=== PATIENT | female | born 1955 | race Hispanic/Latino ===

== ENCOUNTER 2018-08-26 21:23 | Emergency (ER) | payer OTHER ==
[2018-08-26] MEDS ORDERED: ACETAMINOPHEN 500 MG TAB ONE ×2 (23:00→23:01)
[2018-08-26] MEDS ORDERED: IBUPROFEN 400 MG TAB ONE (23:00)
[2018-08-26] MEDS ORDERED: IBUPROFEN 200 MG TAB PO ONE (23:00)
--- NOTE | 2018-08-26 23:52 | EDPHYS ---
Physician Documentation [facility] Name: Kaylyn Moncada Age: 62 yrs Sex: Female : 1955 Arrival Date: 08/26/2018 Time: 21:25 Bed 28 Private MD: ED Physician Abebe Anand HPI: 08/26 23:20 This 62 yrs old Female presents to ER via Ambulatory with complaints of Wrist wa Pain. 23:20 The patient or guardian reports deformity, injury. The complaints affect the right wa wrist diffusely. Context: The problem was sustained at home, resulted from a fall. Onset: The symptoms/episode began/occurred just prior to arrival, today. Modifying factors: The symptoms are alleviated by nothing, the symptoms are aggravated by movement. Associated signs and symptoms: The patient has no apparent associated signs or symptoms. The patient has not experienced similar symptoms in the past. The patient has not recently seen a physician. fell. tripped by dog. denies LOC. Historical: - Allergies: 21:53 No Known Allergies; bb - Home Meds: 21:53 Lantus 100 unit/mL Sub-Q soln [Active]; metformin 1,000 mg Oral TG24 1 tab 2 times per bb day [Active]; glipizide 10 mg Oral tab 1 tab 2 times per day [Active]; ibuprofen 800 mg Oral tab 1 tab 3 times per day [Active]; metoprolol succinate 50 mg oral Tb24 1 tab once daily [Active]; Levemir 100 unit/mL subcutaneous soln [Active]; losartan potassium daily [Active]; hydrochlorothiazide 25 mg Oral tab 1 tab once daily [Active]; cyclobenzaprine 10 mg Oral tab 1 tab 2 times per day [Active]; simvastatin 40 mg Oral tab 1 tab once daily [Active]; prednisone 10 mg Oral tab 1 tab 2 times per day [Active]; - PMHx: 21:53 Diabetes - IDDM; Hypertension; allergies; bb - PSHx: 21:53 None; bb - Immunization history:: Adult Immunizations up to date. - Social history:: Smoking status: Patient uses tobacco products, denies chronic smoking, but will smoke occasionally, Patient/guardian denies using alcohol. - Ebola Screening: : No symptoms or risks identified at this time. - Family history:: not pertinent. - Hospitalizations: : No recent hospitalization is reported. ROS: 23:23 Constitutional: Negative for fever, chills, and weight loss, Eyes: Negative for injury, wa pain, redness, and discharge, ENT: Negative for injury, pain, and discharge, Neck: Negative for injury, pain, and swelling, Cardiovascular: Negative for chest pain, palpitations, and edema, Respiratory: Negative for shortness of breath, cough, wheezing, and pleuritic chest pain, Abdomen/GI: Negative for abdominal pain, nausea, vomiting, diarrhea, and constipation, : Negative for injury, bleeding, discharge, and swelling, Skin: Negative for injury, rash, and discoloration, Neuro: Negative for headache, weakness, numbness, tingling, and seizure. 23:23 Back: Positive for pain with movement, of the lumbar area, left low back and right low back. 23:23 MS/extremity: Positive for injury or acute deformity, pain, swelling, tenderness, of the right wrist. 23:23 All other systems are negative. Exam: 23:31 Hand exam: Exam is positive for injury, pain, swelling, tenderness, R wrist. wa 23:31 Skin: Appearance: Color: normal in color. 23:31 Constitutional: This is a well developed, well nourished patient who is awake, alert, and in no acute distress. Head/Face: Normocephalic, atraumatic. Eyes: Pupils equal round and reactive to light, extra-ocular motions intact. Lids and lashes normal. Conjunctiva and sclera are non-icteric and not injected. Cornea within normal limits. Periorbital areas with no swelling, redness, or edema. ENT: Nares patent. No nasal discharge, no septal abnormalities noted. Tympanic membranes are normal and external auditory canals are clear. Oropharynx with no redness, swelling, or masses, exudates, or evidence of obstruction, uvula midline. Mucous membranes moist. Neck: Trachea midline, no thyromegaly or masses palpated, and no cervical lymphadenopathy. Supple, full range of motion without nuchal rigidity, or vertebral point tenderness. No Meningismus. Chest/axilla: Normal chest wall appearance and motion. Nontender with no deformity. No lesions are appreciated. Cardiovascular: Regular rate and rhythm with a normal S1 and S2. No gallops, murmurs, or rubs. Normal PMI, no JVD. No pulse deficits. Respiratory: Lungs have equal breath sounds bilaterally, clear to auscultation and percussion. No rales, rhonchi or wheezes noted. No increased work of breathing, no retractions or nasal flaring. Abdomen/GI: Soft, non-tender, with normal bowel sounds. No distension or tympany. No guarding or rebound. No evidence of tenderness throughout. Skin: Warm, dry with normal turgor. Normal color with no rashes, no lesions, and no evidence of cellulitis. Neuro: Awake and alert, GCS 15, oriented to person, place, time, and situation. Cranial nerves II-XII grossly intact. Motor strength 5/5 in all extremities. Sensory grossly intact. Cerebellar exam normal. Normal gait. Psych: Awake, alert, with orientation to person, place and time. Behavior, mood, and affect are within normal limits. 23:31 Back: pain, that is mild, of the lumbar area, left low back and right low back. 23:31 Musculoskeletal/extremity: Extremities: grossly normal except: noted in the right wrist: pain, swelling, tenderness. Vital Signs: 21:53 BP 144 / 60; Pulse 57; Resp 16 S; Temp 98.4(O); Pulse Ox 100% on R/A; Weight 56.7 kg bb (R); Height 5 ft. 3 in. (160.02 cm) (R); Pain 10/10; 23:28 BP 137 / 81; Pulse 63; Resp 18; Pulse Ox 98% on R/A; rv 21:53 Body Mass Index 22.14 (56.70 kg, 160.02 cm) Procedures: 23:49 Splinting: Splint applied to right wrist using Orthoglass splint, applied by tech. ok nurse. Examined by tx, post splint application: neurovascular intact, 2+ distal pulses palpable, brisk capillary refill noted, Patient tolerated well, orthoglass sugartong splint placed R wrist. tolerated well. [facility]: 22:06 Patient medically screened. ok 23:33 Differential diagnosis: dislocation, closed fracture, contusion. Data reviewed: vital ok signs, nurses notes. 23:48 Test interpretation: by ED physician or midlevel provider: R wrist x-ray: acute ok comminuted fx of the distal radius. lumbar x-ray: no acute fx. Response to treatment: the patient's symptoms have markedly improved after treatment. 08/26 21:56 Order name: XRAY Wrist RIGHT 3 view 08/26 22:32 Order name: Lumbar Spine (3 Views) XRAY wa 08/26 22:39 Order name: Splint - Sugar Tong - Forearm: R UE to involve wrist; Complete Time: 23:27 Administered Medications: 23:23 Drug: Tylenol 1000 mg Route: PO; rv 23:55 Follow up: Response: No adverse reaction rv 23:24 Drug: Motrin 600 mg Route: PO; rv 23:55 Follow up: Response: No adverse reaction rv Disposition: 08/26/18 23:51 Discharged to Home. Impression: Fracture at wrist and hand level. - Condition is Stable. - Discharge Instructions: Wrist Fracture Treated With Immobilization, [id number]. - Prescriptions for Tylenol- Codeine #3 300-30 mg Oral Tablet - take 1 tablet by ORAL route every 6 hours As needed; 25 tablet. - Medication Reconciliation Form, Thank You Letter, Antibiotic Education, Prescription Opioid Use form. - Follow up: Pablito Mayfield MD; When: 2 - 3 days; Reason: Continuance of care. - Problem is new. - Symptoms have improved. - Notes: wear splint and sling. follow up with the bone doctor next business day by calling for appointment. Signatures: Dispatcher [employer] Trinity Sanchez RN RN Abebe Anand MD MD wa Vicente, Ronaldo, RN RN rv Corrections: (The following items were deleted from the chart) 08/27 00:00 08/26 23:51 08/26/2018 23:51 Discharged to Home. Impression: Fracture at wrist and hand rv level. Condition is Stable. Forms are Medication Reconciliation Form, Thank You Letter, Antibiotic Education, Prescription Opioid Use. Follow up: Pablito Mayfield; When: 2 - 3 days; Reason: Continuance of care. Problem is new. Symptoms have improved. elizabeth
--- NOTE | 2018-08-26 23:52 | ER ---
Nurse's Notes [facility] Name: Kaylyn Moncada Age: 62 yrs Sex: Female : 1955 Arrival Date: 08/26/2018 Time: 21:25 Bed 28 Private MD: Diagnosis: Fracture at wrist and hand level Presentation: 08/26 21:44 Presenting complaint: Patient states: she was walking the dog and when she tried to bb open the door she got tangled up in the leash and fell backwards injuring her right wrist and she thinks she has swelling to the right side of her face. Transition of care: patient was not received from another setting of care. Onset of symptoms was August 26, 2018. Risk Assessment: Do you want to hurt yourself or someone else? Patient reports no desire to harm self or others. Initial Sepsis Screen: Does the patient meet any 2 criteria? No. Patient's initial sepsis screen is negative. Does the patient have a suspected source of infection? No. Patient's initial sepsis screen is negative. Care prior to arrival: None. 21:44 Method Of Arrival: Ambulatory bb 21:44 Acuity: MARVIN 4 bb Historical: - Allergies: 21:53 No Known Allergies; bb - Home Meds: 21:53 Lantus 100 unit/mL Sub-Q soln [Active]; metformin 1,000 mg Oral TG24 1 tab 2 times per bb day [Active]; glipizide 10 mg Oral tab 1 tab 2 times per day [Active]; ibuprofen 800 mg Oral tab 1 tab 3 times per day [Active]; metoprolol succinate 50 mg oral Tb24 1 tab once daily [Active]; Levemir 100 unit/mL subcutaneous soln [Active]; losartan potassium daily [Active]; hydrochlorothiazide 25 mg Oral tab 1 tab once daily [Active]; cyclobenzaprine 10 mg Oral tab 1 tab 2 times per day [Active]; simvastatin 40 mg Oral tab 1 tab once daily [Active]; prednisone 10 mg Oral tab 1 tab 2 times per day [Active]; - PMHx: 21:53 Diabetes - IDDM; Hypertension; allergies; bb - PSHx: 21:53 None; bb - Immunization history:: Adult Immunizations up to date. - Social history:: Smoking status: Patient uses tobacco products, denies chronic smoking, but will smoke occasionally, Patient/guardian denies using alcohol. - Ebola Screening: : No symptoms or risks identified at this time. - Family history:: not pertinent. - Hospitalizations: : No recent hospitalization is reported. Screenin:30 Abuse screen: Denies threats or abuse. Denies injuries from another. Nutritional rv screening: No deficits noted. Tuberculosis screening: No symptoms or risk factors identified. Fall Risk None identified. Assessment: 22:00 General: Appears in no apparent distress. uncomfortable, Behavior is calm, cooperative. rv 22:00 Pain: Complains of pain in right wrist. Neuro: Level of Consciousness is awake, alert, rv obeys commands, Oriented to person, place, time, situation. Cardiovascular: Capillary refill < 3 seconds. Respiratory: Airway is patent. GI: No signs and/or symptoms were reported involving the gastrointestinal system. : No signs and/or symptoms were reported regarding the genitourinary system. EENT: No signs and/or symptoms were reported regarding the EENT system. Derm: Skin is intact. Musculoskeletal: Swelling present in right wrist. 23:33 Reassessment: Patient appears in no apparent distress at this time. Patient and/or rv family updated on plan of care and expected duration. Pain level reassessed. Patient is alert, oriented x 3, equal unlabored respirations, skin warm/dry/pink. Vital Signs: 21:53 BP 144 / 60; Pulse 57; Resp 16 S; Temp 98.4(O); Pulse Ox 100% on R/A; Weight 56.7 kg bb (R); Height 5 ft. 3 in. (160.02 cm) (R); Pain 10/10; 23:28 BP 137 / 81; Pulse 63; Resp 18; Pulse Ox 98% on R/A; rv 21:53 Body Mass Index 22.14 (56.70 kg, 160.02 cm) bb ED Course: 21:25 Patient arrived in ED. ag3 21:46 Triage completed. bb 21:53 Arm band placed on Patient placed in an exam room, on a stretcher, on pulse oximetry. bb Affected limb iced. Family accompanied patient. 21:56 X-ray ordered. bb 22:06 Abebe Anand MD is Attending Physician. wa 22:19 X-ray completed. Portable x-ray completed in exam room. Patient tolerated procedure ls3 well. 22:20 XRAY Wrist RIGHT 3 view In Process Unspecified. EDMS 22:55 Lumbar Spine (3 Views) XRAY In Process Unspecified. EDMS 23:30 Patient has correct armband on for positive identification. Bed in low position. Call rv light in reach. Side rails up X 1. Adult w/ patient. Pulse ox on. NIBP on. 23:44 Orthoglass splint: Sugar tong splint applied on right arm. Sling applied to right arm. ds4 23:51 Pablito Mayfield MD is Referral Physician. wa 23:59 No provider procedures requiring assistance completed. Patient did not have IV access rv during this emergency room visit. Administered Medications: 23:23 Drug: Tylenol 1000 mg Route: PO; rv 23:55 Follow up: Response: No adverse reaction rv 23:24 Drug: Motrin 600 mg Route: PO; rv 23:55 Follow up: Response: No adverse reaction rv Outcome: 23:51 Discharge ordered by . hi 08/27 00:00 Discharged to home ambulatory. rv Condition: good Discharge instructions given to patient, family, Instructed on discharge instructions, follow up and referral plans. medication usage, Demonstrated understanding of instructions, follow-up care, medications, splint care, Prescriptions given X 1. 00:00 Patient left the ED. rv Signatures: Dispatcher [employer] EDMS Trinity Ward, Zbigniew Jorgensen RN ds4 Abebe Anand MD MD wa Vicente, Ronaldo, RN RN rv Siler, Lynzie ls3 Olivia Hope ag3
--- NOTE | 2018-08-27 09:42 | RAD REPORT ---
EXAM DESCRIPTION: RAD - Wrist Right 3 View - 08/26/2018 10:20 pm CLINICAL HISTORY: Right wrist pain status post injury FINDINGS: A mildly displaced intra-articular fracture involves the distal right radius. No dislocation is seen. Avulsion of the ulnar styloid process probably is chronic
--- NOTE | 2018-08-27 09:56 | RAD REPORT ---
EXAM DESCRIPTION: RAD - Lumbar Spine 3 Views - 08/26/2018 11:00 pm CLINICAL HISTORY: Back pain FINDINGS: The alignment of the lumbar spine is satisfactory. No fracture or dislocation is seen. The bones are osteoporotic
== END 2018-08-27 | disposition home or self-care (01) ==
LOC: ER 21:23
PROC: 2W3CX1Z Immobilization of Right Lower Arm using Splint (ICD-10-PCS; principal; 2018-08-26)
DX: S62.101A Fracture of unspecified carpal bone, right wrist, initial encounter for closed fracture (principal); M54.5 Low back pain; M81.0 Age-related osteoporosis without current pathological fracture; W01.0XXA Fall on same level from slipping, tripping and stumbling without subsequent striking against object, initial encounter; Y92.009 Unspecified place in unspecified non-institutional (private) residence as the place of occurrence of the external cause; E11.9 Type 2 diabetes mellitus without complications; I10 Essential (primary) hypertension; Z79.4 Long term (current) use of insulin; Z79.899 Other long term (current) drug therapy; F17.200 Nicotine dependence, unspecified, uncomplicated
CPT/HCPCS: 72100; 99284

== ENCOUNTER → 2024-01-10 | Emergency (ER) | payer OTHER ==
[~2024-01-10] MED LIST: FAMOTIDINE 20 MG/2 ML VIAL IV ONE; NA CHLORIDE 0.9% 1,000 ML ONE; ONDANSETRON 4 MG/2 ML VIAL ONE
[2024-01-10 14:35] LABS: Absolute Eosinophils 0.1 K/uL (0-0.5); Absolute Lymphocytes (CBC) 1.7 K/uL (0.7-4.9); Absolute Monocytes 0.4 K/uL (0.1-1.3); Absolute Neutrophil 6.4 K/uL (1.8-8.0); Basophils % 0.4 % (0-1.3); Eosinophils % 1.2 % (0-4.4); Hematocrit 40.8 % (36.0-45.0); Hemoglobin 13.7 g/dL (12.0-15.0); Lymphocytes % 19.4 % (15.3-44.8); MCH 31.4 pg (27.0-35.0); MCHC 33.6 g/dL (32.0-36.0); MCV 93.4 fL (80-100); MPV 8.5 fL (7.6-11.3); Monocytes % 5.2 % (3.3-12.3); Neutrophils % 73.8 % (41.7-73.7); Platelets 235 thou/uL (152-406); RBC Red Blood Cell Count 4.37 M/uL (3.86-4.86); Red Cell Distribution Width 13.5 % (12.1-15.2)
[2024-01-10 14:54] LABS: Albumin 3.8 g/dL (3.4-5.0); Albumin/Globulin Ratio 1.1 (1.1-1.8); Anion Gap 9.5 mEq/L (5.0-15.0); Bilirubin Total 1.1 mg/dL (0.2-1.0); Globulin 3.4 g/dL (2.3-3.5); Potassium 3.5 mEq/L (3.5-5.1); Protein, Total 7.2 g/dL (6.4-8.2)
--- NOTE | 2024-01-10 15:25 | RAD REPORT ---
EXAM DESCRIPTION: CT - Abdomen Pelvis W Contrast - 01/10/2024 3:08 pm CLINICAL HISTORY: Abdominal pain COMPARISON: none. TECHNIQUE: Computed axial tomography of the abdomen pelvis was obtained. 100 cc Isovue-300 was admin istered intravenously. Oral contrast was not requested which limits evaluation of bowel and appendix All CT scans are performed using dose optimization technique as appropriate and may include automated exposure control or mA/KV adjustment according to patient size. FINDINGS: The liver, spleen, pancreas, right adrenal and kidneys appear unremarkable. 2.2 centimeter left adrenal mass. Hounsfield units 39 There is no evidence of diverticulitis. Normal appendix 1.8 centimeter partially calcified structure abuts the left aspect of the uterus which may represent subserosal fibroid or calcifications within left ovary 2 centimeter area of increased density within the uterus IMPRESSION: 2.2 centimeter left adrenal mass. It is recommended that the patient have a nonemergent MRI to determine if this represents an adenoma A 2 centimeter area of increased density within the uterus. This may represent a fibroid or endometri al lesion. Nonemergent endovaginal pelvic sonogram recommended
--- NOTE | 2024-01-10 15:44 | ER ---
Nurse's Notes [facility] Name: Kaylyn Moncada Age: 68 yrs Sex: Female : 1955 Arrival Date: 01/10/2024 Time: 14:04 Bed 14 Private MD: Diagnosis: Nausea with vomiting, unspecified;Diarrhea, unspecified;adrenal mass Presentation: 01/09 14:18 Chief complaint: Patient states: "Today, I started having N/V/D. My stomach feels off mb9 and I can't keep food or liquids down.". Coronavirus screen: Vaccine status: Patient reports receiving the 2nd dose of the covid vaccine. Ebola Screen: No symptoms or risks identified at this time. Initial Sepsis Screen: Does the patient meet any 2 criteria? No. Patient's initial sepsis screen is negative. Does the patient have a suspected source of infection? No. Patient's initial sepsis screen is negative. Risk Assessment: Do you want to hurt yourself or someone else? Patient reports no desire to harm self or others. Onset of symptoms was January 10, 2024. 14:18 Acuity: MARVIN 3 mb9 14:18 Method Of Arrival: Ambulatory mb9 Triage Assessment: 14:19 General: Appears in no apparent distress. Behavior is calm, cooperative. Pain: Denies mb9 pain. GI: Reports diarrhea, nausea, vomiting. Historical: - Allergies: 14:17 No Known Allergies; mb9 - PMHx: 14:17 allergies; Diabetes - IDDM; Hypertension; mb9 - PSHx: 14:17 None; mb9 - Immunization history:: Adult Immunizations up to date. - Social history:: Smoking status: Patient denies any tobacco usage or history of. Screenin:32 [facility] ED Fall Risk Assessment (Adult) History of falling in the last 3 months, me1 including since admission No falls in past 3 months (0 pts) Confusion or Disorientation No (0 pts) Intoxicated or Sedated No (0 pts) Impaired Gait No (0 pts) Mobility Assist Device Used No (0 pt) Altered Elimination No (0 pt) Score/Fall Risk Level 0 - 2 = Low Risk Maintained a safe environment, Provided non-skid footwear, Hourly rounding (assess needs \\T\\ fall precautionary measures) done. Abuse screen: Denies threats or abuse. Nutritional screening: No deficits noted. Tuberculosis screening: No symptoms or risk factors identified. Assessment: 14:31 General: Appears uncomfortable, well groomed, well developed, well nourished, Behavior me1 is calm, cooperative, appropriate for age, Reports n/v/d that started today. Can't keep food or liquids down. Pain: Complains of pain in abdomen Pain does not radiate. Pain currently is 3 out of 10 on a pain scale. Quality of pain is described as crampy, Pain began 4 hours ago. Is continuous. Neuro: Level of Consciousness is awake, alert, obeys commands, Oriented to person, place, time, situation, Appropriate for age. Cardiovascular: Patient's skin is warm and dry. Respiratory: Respiratory effort is even, unlabored, Respiratory pattern is regular, symmetrical. GI: Abdomen is non-distended, Reports diarrhea, nausea, vomiting. : No deficits noted. Derm: Skin is intact, is healthy with good turgor, Skin is pink, warm \\T\\ dry. Vital Signs: 14:15 BP 135 / 69; Pulse 58; Resp 16; Pulse Ox 100% on R/A; me1 14:18 BP 104 / 71; Pulse 65; Resp 16; Temp 98.5; Pulse Ox 100% on R/A; Weight 52.16 kg; mb9 Height 5 ft. 1 in. ; 15:00 BP 170 / 70; Pulse 51; Resp 14; Pulse Ox 98% on R/A; me1 16:04 BP 137 / 65; Pulse 56; Resp 16; Temp 98.3(O); Pulse Ox 98% on R/A; me1 14:18 Body Mass Index 21.73 (52.16 kg, 154.94 cm) 9 ED Course: 14:06 Patient arrived in ED. im 14:09 Jenn Peguero, REYNA is Primary Nurse. me1 14:11 Faye Martínez FNP-C is PHCP. kb 14:11 Jack Vieyra DO is Attending Physician. kb 14:17 Arm band placed on. mb9 14:19 Triage completed. mb9 14:23 Client placed on continuous cardiac and pulse oximetry monitoring. NIBP monitoring me1 applied. Pulse ox on. NIBP on. 14:23 Initial lab(s) drawn, by me, sent to lab. Inserted saline lock: 22 gauge in right me1 antecubital area, using aseptic technique. 14:23 CBC with Diff Sent. me1 14:23 CMP Sent. me1 14:23 Lipase Sent. me1 14:32 Patient has correct armband on for positive identification. Bed in low position. Call me1 light in reach. Side rails up X 1. Provided Education on: POC. Verbalized understanding. . 14:32 No provider procedures requiring assistance completed. me1 15:10 CT Abd/Pelvis - IV Contrast Only In Process Unspecified. EDMS 16:19 IV discontinued, intact, bleeding controlled, No redness/swelling at site. Pressure me1 dressing applied. Administered Medications: 14:30 Drug: NS 0.9% IV 1000 ml IV at 1 bolus Per protocol; 1000 mL bolus Route: IV; Rate: 1 me1 bolus; Site: right antecubital; 16:03 Follow up: Response: No adverse reaction; IV Status: Completed infusion; IV Intake: me1 1000ml 14:30 Drug: Famotidine IVP 20 mg IVP once; dilute with 10 mL 0.9% NaCl; give over 2 minutes me1 Route: IVP; Site: right antecubital; 14:35 Follow up: Response: No adverse reaction me1 14:30 Drug: Ondansetron IVP 4 mg IVP once; over 2 minutes Route: IVP; Site: right antecubital;me1 14:34 Follow up: Response: No adverse reaction; Nausea is decreased me1 Medication: 16:08 VIS not applicable for this client. me1 Intake: 16:03 IV: 1000ml; Total: 1000ml. me1 Outcome: 15:43 Discharge ordered by . laila 16:19 Discharged to home ambulatory, me1 16:19 Condition: stable 16:19 Discharge instructions given to patient, Instructed on discharge instructions, follow up and referral plans. medication usage, Demonstrated understanding of instructions, follow-up care, medications, Prescriptions given X 1, 16:20 Patient left the ED. me1 Signatures: Dispatcher [employer] EDFaye De Oliveira, [employer]AT[employer] WORKEROmarC [employer]AT[employer] WORKER-Jena Cespedes RN RN mb9 Jocelyn Delvalle Michelle RN RN me1
--- NOTE | 2024-01-10 15:44 | EDPHYS ---
Physician Documentation [facility] Name: Kaylyn Moncada Age: 68 yrs Sex: Female : 1955 Arrival Date: 01/10/2024 Time: 14:04 Bed 14 Private MD: ED Physician Jack Vieyra HPI: 01/09 14:22 This 68 yrs old Female presents to ER via Ambulatory with complaints of kb Vomiting, Abdominal Pain. 14:22 Pt is a 68 year old female who presents for n/v/d that started this morning. Denies kb fever or abd pain. Daughter states pt had been complaining of abd pain prior to arrival. . Historical: - Allergies: 14:17 No Known Allergies; mb9 - PMHx: 14:17 allergies; Diabetes - IDDM; Hypertension; mb9 - PSHx: 14:17 None; mb9 - Immunization history:: Adult Immunizations up to date. - Social history:: Smoking status: Patient denies any tobacco usage or history of. ROS: 14:21 Constitutional: As per HPI kb Exam: 14:21 Constitutional: This is a well developed, well nourished patient who is awake, alert, kb and in no acute distress. Head/Face: Normocephalic, atraumatic. ENT: Moist Mucous membranes Cardiovascular: Regular rate Respiratory: Respirations even and unlabored. No increased work of breathing. Talking in full sentences Abdomen/GI: Soft, non-tender. No distention Skin: Warm, dry with normal turgor. Normal color. MS/ Extremity: Pulses equal, no cyanosis. Neurovascular intact. Full, normal range of motion. Neuro: Awake and alert, GCS 15, oriented to person, place, time, and situation. Moves all extremities. Normal gait. Vital Signs: 14:15 BP 135 / 69; Pulse 58; Resp 16; Pulse Ox 100% on R/A; me1 14:18 BP 104 / 71; Pulse 65; Resp 16; Temp 98.5; Pulse Ox 100% on R/A; Weight 52.16 kg; mb9 Height 5 ft. 1 in. ; 15:00 BP 170 / 70; Pulse 51; Resp 14; Pulse Ox 98% on R/A; me1 16:04 BP 137 / 65; Pulse 56; Resp 16; Temp 98.3(O); Pulse Ox 98% on R/A; me1 14:18 Body Mass Index 21.73 (52.16 kg, 154.94 cm) mb9 MDM: 14:11 Patient medically screened. kb 14:23 Data reviewed: vital signs, nurses notes. kb 15:42 Differential diagnosis: Nonspecific abd pain, gastritis, diverticulitis, viral kb gastroenteritis. Historians other than the Patient: Daughter/Son: daughter. Counseling: I had a detailed discussion with the patient and/or guardian regarding the historical points, exam findings, and any diagnostic results supporting the discharge/admit diagnosis, lab results, radiology results, the need for outpatient follow up, a family practitioner, to return to the emergency department if symptoms worsen or persist or if there are any questions or concerns that arise at home. ED course: Pt educated on all diagnostic results and printed copy given. Educated to follow up with PCP for the adrenal mass and outpatient MRI. 01/09 14:13 Order name: CBC with Diff; Complete Time: 14:41 kb 01/09 14:13 Order name: CMP; Complete Time: 15:01 kb 01/09 14:13 Order name: Lipase; Complete Time: 15:01 kb 01/09 14:13 Order name: CT Abd/Pelvis - IV Contrast Only; Complete Time: 15:27 kb 01/09 14:13 Order name: IV Saline Lock; Complete Time: 14:23 kb 01/09 14:13 Order name: Labs collected and sent; Complete Time: 14:23 kb Administered Medications: 14:30 Drug: NS 0.9% IV 1000 ml IV at 1 bolus Per protocol; 1000 mL bolus Route: IV; Rate: 1 me1 bolus; Site: right antecubital; 16:03 Follow up: Response: No adverse reaction; IV Status: Completed infusion; IV Intake: me1 1000ml 14:30 Drug: Famotidine IVP 20 mg IVP once; dilute with 10 mL 0.9% NaCl; give over 2 minutes me1 Route: IVP; Site: right antecubital; 14:35 Follow up: Response: No adverse reaction me1 14:30 Drug: Ondansetron IVP 4 mg IVP once; over 2 minutes Route: IVP; Site: right antecubital;me1 14:34 Follow up: Response: No adverse reaction; Nausea is decreased me1 Disposition: 17:14 I was immediately available on-site in the Emergency Department for consultation in the ms3 care of the patient. Disposition Summary: 01/10/24 15:43 Discharge Ordered Notes: Location: Home kb Condition: Stable kb Diagnosis - Nausea with vomiting, unspecified kb - Diarrhea, unspecified kb - adrenal mass kb Followup: kb - With: Emergency Department - When: As needed - Reason: Worsening of condition Followup: kb - With: Private Physician - When: 2 - 3 days - Reason: Recheck today's complaints, Continuance of care, Re-evaluation by your physician Discharge Instructions: - Discharge Summary Sheet kb - Food Choices to Help Relieve Diarrhea, Adult kb - Nausea and Vomiting, Adult, [id number] kb - Diarrhea, Adult, [id number] kb Forms: - Medication Reconciliation Form kb - Thank You Letter kb - Antibiotic Education kb - Prescription Opioid Use kb - Patient Portal Instructions kb - Leadership Thank You Letter kb Prescriptions: - Zofran 4 mg Oral tablet - take 1 tablet ORAL route every 6 hours As needed; 12 tablet; Refills: 0, kb Product Selection Permitted Signatures: Dispatcher [employer] EDMS Faye Martínez, NURSE AIDE EVALUATOR-C NURSE AIDE EVALUATOR-Ckb Jack Vieyra DO DO ms3 Jena Bacon, RN RN mb9 Jenn Peguero RN RN me1
[2024-01-10 16:52] VITALS: BP 137/65; TEMP 98.3; O2SAT 98
== END ==
LOC: ER 14:04
DX: R11.2 Nausea with vomiting, unspecified (principal); R19.7 Diarrhea, unspecified; E27.9 Disorder of adrenal gland, unspecified; I10 Essential (primary) hypertension
CPT/HCPCS: 85025; 36415; 83690; 80053; 74177; Q9967; J2405; J7030

== ENCOUNTER 2024-01-31 13:21 | Emergency (ER) | payer OTHER ==
--- OUTSIDE RECORDS SUMMARY | 2024-01-31 13:26 | XMS REPORT | Continuity of Care Document ---
Author Name Unknown Address [address] [place] [address] thconnect Address [address] [place] [address] [place] [address] Care Team Providers Care Health Educator Name Role Phone [email or web address] Attending Clinician Unavaila ble [email or web address] Admitting Clinician Unavaila ble Payers Payer Name Policy Type Policy Number Effective Date Expirati on Date Source [facility] (MEDICARE REPLACEMENT/ADVANTAGE - PPO) [id number] Encounters Start Date/Time End Date/Time Encounter Type Admission Type Attending Clinicians Care Facility Care Department Encounter ID Source 2023-11-09 00:00:00 2023-11-09 00:00:00 Outpatient [email or web address] [email or web address] PRIV PRIV [id number] [facility] 2023-11-04 00:00:00 2023-11-04 00:00:00 Outpatient [email or web address] PRIV PRIV [id number] [facility] 2023-06-23 00:00:00 2023-06-23 00:00:00 Outpatient [email or web address] PRIV PRIV [id number] [facility]
[2024-01-31] MEDS ORDERED: ONDANSETRON 4 MG/2 ML VIAL ONE (13:40)
[2024-01-31] MEDS ORDERED: NA CHLORIDE 0.9% 1,000 ML ONE (13:40)
[2024-01-31] MEDS ORDERED: FAMOTIDINE 20 MG/2 ML VIAL IV ONE (13:40)
[2024-01-31 14:21] LABS: Absolute Basophils 0.1 K/uL (0-0.5); Absolute Eosinophils 0.2 K/uL (0-0.5); Absolute Lymphocytes (CBC) 2.2 K/uL (0.7-4.9); Absolute Monocytes 0.7 K/uL (0.1-1.3); Absolute Neutrophil 13.2 K/uL (1.8-8.0); Basophils % 0.5 % (0-1.3); Hematocrit 43.4 % (36.0-45.0); Hemoglobin 14.5 g/dL (12.0-15.0); Lymphocytes % 13.3 % (15.3-44.8); MCHC 33.3 g/dL (32.0-36.0); MCV 92.9 fL (80-100); MPV 8.1 fL (7.6-11.3); Monocytes % 4.1 % (3.3-12.3); Neutrophils % 81.1 % (41.7-73.7); Platelets 262 thou/uL (152-406); RBC Red Blood Cell Count 4.67 M/uL (3.86-4.86); Red Cell Distribution Width 13.4 % (12.1-15.2)
[2024-01-31 14:39] LABS: Albumin 3.7 g/dL (3.4-5.0); Albumin/Globulin Ratio 1.1 (1.1-1.8); Anion Gap 8.3 mEq/L (5.0-15.0); Bilirubin Total 0.6 mg/dL (0.2-1.0); Globulin 3.5 g/dL (2.3-3.5); Potassium 3.3 mEq/L (3.5-5.1); Protein, Total 7.2 g/dL (6.4-8.2)
[2024-01-31 14:46] LABS: Magnesium 1.7 mg/dL (1.6-2.4); Phosphorus 3.4 mg/dL (2.5-4.9)
--- NOTE | 2024-01-31 15:33 | RAD REPORT ---
EXAM DESCRIPTION: CT - Abdomen Pelvis W Contrast - 01/31/2024 3:08 pm CLINICAL HISTORY: ABD PAIN COMPARISON: Abdomen Pelvis W Contrast dated 01/10/2024 TECHNIQUE: Thin cut axial CT imaging of the abdomen and pelvis was performed following intravenous a dministration of 100 mL Isovue 300. Multiplanar reformats were generated and reviewed. All CT scans are performed using dose optimization technique as appropriate and may include automated exposure control or mA/KV adjustment according to patient size. FINDINGS: No suspicious findings in the lung bases. The liver, spleen, and pancreas show no suspicious findings. Stable left adrenal 2 cm nodule, inadequ ately characterized. Gallbladder and biliary tree are also without suspicious finding. Symmetric renal function is seen with no hydronephrosis or suspicious renal mass. No dilated bowel loops or bowel wall thickening. Colonic diverticulosis. Appendix is unremarkable. No free air, free fluid or inflammatory stranding. No hernia, mass or bulky lymphadenopathy. Multiple u terine fibroids again seen. The urinary bladder is without significant finding. No suspicious bony findings. IMPRESSION: No acute intra-abdominal process. Stable incidental findings as above including a small left adrenal nodule, colonic diverticulosis, an d uterine fibroids.
[2024-01-31 15:39] LABS: Specific Gravity > 1.030 (1.005-1.030); Urine Bilirubin NEGATIVE (Negative); Urine Blood Negative (Negative); Urine Clarity Clear (Clear); Urine Color Colorless (Yellow); Urine Glucose 3+ (Negative); Urine Ketones NEGATIVE (Negative); Urine Microscopic Reflex YN NO UMIC; Urine Nitrite NEGATIVE (Negative); Urine Protein NEGATIVE (Negative); Urine Urobilinogen Normal (Normal)
--- NOTE | 2024-01-31 16:39 | ER ---
Nurse's Notes [facility] Name: Kaylyn Moncada Age: 68 yrs Sex: Female : 1955 Arrival Date: 01/31/2024 Time: 13:21 Bed 13 Private MD: Diagnosis: Nausea with vomiting, unspecified Presentation: 01/30 13:31 Chief complaint: EMS states: Vomiting since 8am this morning. No diarrhea. nj1 Periumbilical pain. Refused IM zofran. 13:31 Coronavirus screen: Vaccine status: Patient reports being unvaccinated. Ebola Screen: nj1 Patient denies travel to an Ebola-affected area in the 21 days before illness onset. 13:31 Method Of Arrival: EMS: [facility] 13:31 Care prior to arrival: Glucose check: 187. [facility] 13:40 Initial Sepsis Screen: Does the patient meet any 2 criteria? No. Patient's initial [facility] sepsis screen is negative. Does the patient have a suspected source of infection? No. Patient's initial sepsis screen is negative. Risk Assessment: Do you want to hurt yourself or someone else? Patient reports no desire to harm self or others. Onset of symptoms was January 31, 2024 at 08:00. 13:40 Acuity: MARVIN 3 nj1 Triage Assessment: 13:45 General: Appears uncomfortable, Behavior is calm, cooperative, appropriate for age. nj1 Pain: Complains of pain in abdomen. GI: Pt is actively vomiting Reports upper abdominal pain, vomiting. Historical: - Allergies: 13:40 No Known Allergies; nj1 - PMHx: 13:40 allergies; Diabetes - IDDM; Hypertension; nj1 - Immunization history:: Client reports having NOT received the Covid vaccine. - Infectious Disease History:: Denies. - Social history:: Smoking status: Patient reports the use of cigarette tobacco products, smokes one-half pack cigarettes per day. Screenin:06 [facility] ED Fall Risk Assessment (Adult) History of falling in the last 3 months, tl4 including since admission No falls in past 3 months (0 pts) Confusion or Disorientation No (0 pts) Intoxicated or Sedated No (0 pts) Impaired Gait No (0 pts) Mobility Assist Device Used No (0 pt) Altered Elimination No (0 pt) Score/Fall Risk Level 0 - 2 = Low Risk Oriented to surroundings, Maintained a safe environment, Educated pt \T\ family on fall prevention, incl call for assistance when getting out of bed, Assessed \T\ reinforced patient's understanding of fall precautions, Hourly rounding (assess needs \T\ fall precautionary measures) done, Used ambulatory aids as needed (educated on \T\ assisted with), Used gait belt as appropriate. Abuse screen: Denies threats or abuse. Denies injuries from another. Nutritional screening: No deficits noted. Tuberculosis screening: No symptoms or risk factors identified. Assessment: 14:57 General: Appears in no apparent distress. Behavior is cooperative. Pain: Complains of tl4 pain in abdomen. Neuro: Level of Consciousness is awake, alert, obeys commands, Oriented to person, place, time, situation, Moves all extremities. Gait is steady, Speech is normal, Facial symmetry appears normal. Cardiovascular: Capillary refill < 3 seconds Patient's skin is warm and dry. Respiratory: Airway is patent Respiratory effort is even, unlabored, Respiratory pattern is regular, symmetrical, Breath sounds are clear bilaterally. GI: Reports nausea, vomiting. : No signs and/or symptoms were reported regarding the genitourinary system. EENT: No signs and/or symptoms were reported regarding the EENT system. Derm: No signs and/or symptoms reported regarding the dermatologic system. Musculoskeletal: No signs and/or symptoms reported regarding the musculoskeletal system. 15:48 Reassessment: Patient and/or family updated on plan of care and expected duration. Pain tl4 level reassessed. Patient is alert, oriented x 3, equal unlabored respirations, skin warm/dry/pink. Patient states symptoms have improved. GI: no active vomiting noted. Vital Signs: 13:40 BP 200 / 99; Pulse 89; Resp 18; Temp 96.8(TE); Pulse Ox 98% on R/A; Weight 53.98 kg; nj1 Height 5 ft. 1 in. ; 15:06 BP 146 / 72; Pulse 62; Pulse Ox 99% on R/A; Pain 6/10; tl4 15:49 BP 153 / 69; Pulse 65; Resp 18; Pulse Ox 100% on R/A; tl4 16:15 BP 142 / 64; Pulse 68; Resp 20; Pulse Ox 100% on R/A; tl4 17:03 BP 139 / 57; Pulse 63; Resp 18; Temp 98.1(O); Pulse Ox 100% ; Pain 0/10; tl4 13:40 Body Mass Index 22.48 (53.98 kg, 154.94 cm) nj1 15:06 Pain Scale: Adult tl4 17:03 Pain Scale: Adult tl4 [place] Coma Score: 15:06 Eye Response: spontaneous(4). Motor Response: obeys commands(6). Verbal Response: tl4 oriented(5). Total: 15. ED Course: 13:25 Patient arrived in ED. sb4 13:25 Mary Mena PA-C is PHCP. sb4 13:25 Meng Moraes MD is Attending Physician. sb4 13:40 Arm band placed on. nj1 14:10 Triage completed. nj1 14:13 Phosphorus Sent. em1 14:13 Magnesium Sent. em1 14:13 CBC with Diff Sent. em1 14:13 CMP Sent. em1 14:13 Lipase Sent. em1 14:13 Initial lab(s) drawn, by nj, sent to lab. Inserted saline lock: 22 gauge in right em1 forearm, using aseptic technique. Blood collected. 14:39 Phosphorus Sent. tl4 14:39 Magnesium Sent. tl4 14:39 CMP Sent. tl4 14:39 Lipase Sent. tl4 14:39 Urinalysis w/ reflexes Sent. tl4 15:05 Patient has correct armband on for positive identification. Placed in gown. Bed in low tl4 position. Call light in reach. Side rails up X 1. Adult w/ patient. Provided Education on: ED process. Client placed on continuous cardiac and pulse oximetry monitoring. NIBP monitoring applied. Door closed. Moved to private room. Warm blanket given. Cleaned of incontinence. pt incontinent of urine, placed in clean brief. 15:07 No provider procedures requiring assistance completed. tl4 15:09 CT Abd/Pelvis - IV Contrast Only In Process Unspecified. EDMS 16:37 Abebe Callahan MD is Referral Physician. sb4 17:04 IV discontinued, intact, bleeding controlled, No redness/swelling at site. Pressure tl4 dressing applied. Administered Medications: 14:40 Drug: Famotidine IVP 20 mg IVP once; dilute with 10 mL 0.9% NaCl; give over 2 minutes tl4 Route: IVP; Infused Over: 2 mins; Site: right forearm; 15:45 Follow up: Response: No adverse reaction tl4 14:41 Drug: NS 0.9% IV 1000 ml IV at 1 bolus Per protocol; 1000 mL bolus Route: IV; Rate: 1 tl4 bolus; Site: right forearm; Delivery: Primary tubing; 17:05 Follow up: Response: No adverse reaction; IV Status: Completed infusion; IV Intake: tl4 1000ml 14:41 Drug: Ondansetron IVP 4 mg IVP once; over 2 minutes Route: IVP; Site: right forearm; tl4 15:45 Follow up: Response: No adverse reaction tl4 Medication: 15:08 VIS not applicable for this client. tl4 Intake: 17:05 IV: 1000ml; Total: 1000ml. tl4 Outcome: 16:38 Discharge ordered by MD. sb4 17:04 Discharged to home ambulatory, with family, tl4 17:04 Condition: stable 17:04 Discharge instructions given to patient, Instructed on discharge instructions, follow up and referral plans. medication usage, Demonstrated understanding of instructions, follow-up care, medications, 17:05 Patient left the ED. tl4 Signatures: Dispatcher [employer] David García em1 Mary Mena PA-C PA-C sb4 Saba Kitchen, RN RN nj1 Aneudy Roy RN RN tl4
--- NOTE | 2024-01-31 16:39 | EDPHYS ---
Physician Documentation [facility] Name: Kaylyn Moncada Age: 68 yrs Sex: Female : 1955 Arrival Date: 01/31/2024 Time: 13:21 Bed 13 Private MD: ED Physician Meng Moraes HPI: 01/30 13:27 This 68 yrs old Female presents to ER via Unassigned with complaints of sb4 vomiting. 13:27 The patient presents to the emergency department with nausea, vomiting, diarrhea, sb4 abdominal pain. 13:27 Patient reports nausea, vomiting, intermittent diarrhea, abdominal pain for a few weeks sb4 now. She was seen here 3 weeks ago, workup revealed an adrenal mass and uterine abnormality, both recommended outpatient ultrasounds. Had abdominal MRI done 6 days ago, showed benign adrenal adenoma. Ultrasound showed calcified myometrial fibroid. States the n/v/d is worse, more severe today. Historical: - Allergies: 13:40 No Known Allergies; nj1 - PMHx: 13:40 allergies; Diabetes - IDDM; Hypertension; nj1 - Immunization history:: Client reports having NOT received the Covid vaccine. - Infectious Disease History:: Denies. - Social history:: Smoking status: Patient reports the use of cigarette tobacco products, smokes one-half pack cigarettes per day. ROS: 13:41 Constitutional: Negative for fever, chills, and weight loss, sb4 13:41 Abdomen/GI: Positive for abdominal pain, nausea, vomiting, and diarrhea, 13:41 All other systems are negative, Exam: 13:41 Constitutional: This is a well developed, well nourished patient who is awake, alert, sb4 and in no acute distress. Head/Face: Normocephalic, atraumatic. Eyes: Extra-ocular motions intact. Periorbital areas with no swelling, redness, or edema. ENT: Mucous membranes moist. Cardiovascular: Regular rate and rhythm with a normal S1 and S2. Respiratory: Lungs have equal breath sounds bilaterally, clear to auscultation and percussion. No rales, rhonchi or wheezes noted. No increased work of breathing, no retractions or nasal flaring. Abdomen/GI: Soft, non-tender, no distension. Skin: Warm, dry with normal turgor. Normal color with no rashes, no lesions, and no evidence of cellulitis. MS/ Extremity: Pulses equal, no cyanosis. Neurovascular intact. Full, normal range of motion. Neuro: Awake and alert, GCS 15, oriented to person, place, time, and situation. Motor strength 5/5 in all extremities. Sensory grossly intact. Vital Signs: 13:40 BP 200 / 99; Pulse 89; Resp 18; Temp 96.8(TE); Pulse Ox 98% on R/A; Weight 53.98 kg; nj1 Height 5 ft. 1 in. ; 15:06 BP 146 / 72; Pulse 62; Pulse Ox 99% on R/A; Pain 6/10; tl4 15:49 BP 153 / 69; Pulse 65; Resp 18; Pulse Ox 100% on R/A; tl4 16:15 BP 142 / 64; Pulse 68; Resp 20; Pulse Ox 100% on R/A; tl4 17:03 BP 139 / 57; Pulse 63; Resp 18; Temp 98.1(O); Pulse Ox 100% ; Pain 0/10; tl4 13:40 Body Mass Index 22.48 (53.98 kg, 154.94 cm) [facility] 15:06 Pain Scale: Adult tl4 17:03 Pain Scale: Adult tl4 [place] Coma Score: 15:06 Eye Response: spontaneous(4). Motor Response: obeys commands(6). Verbal Response: tl4 oriented(5). Total: 15. MDM: 13:27 Patient medically screened. sb4 16:37 Data reviewed: vital signs, nurses notes, EMS record, lab test result(s), radiologic sb4 studies, and as a result, I will discharge patient. Historians other than the Patient: Daughter/Son: daughter. Counseling: I had a detailed discussion with the patient and/or guardian regarding the historical points, exam findings, and any diagnostic results supporting the discharge/admit diagnosis, lab results, radiology results, to return to the emergency department if symptoms worsen or persist or if there are any questions or concerns that arise at home. 16:37 Counseling: I had a detailed discussion with the patient and/or guardian regarding the sb4 need for outpatient follow up, a [employer]. 01/30 13:26 Order name: CBC with Diff; Complete Time: 14:23 sb4 01/30 13:26 Order name: CMP; Complete Time: 14:47 sb4 01/30 13:26 Order name: Lipase; Complete Time: 14:47 sb4 01/30 13:26 Order name: Urinalysis w/ reflexes; Complete Time: 15:46 sb4 01/30 13:41 Order name: Magnesium; Complete Time: 14:47 sb4 01/30 13:41 Order name: Phosphorus; Complete Time: 14:47 sb4 01/30 13:26 Order name: CT Abd/Pelvis - IV Contrast Only; Complete Time: 15:33 sb4 01/30 13:26 Order name: IV Saline Lock; Complete Time: 14:13 sb4 01/30 13:26 Order name: Labs collected and sent; Complete Time: 14:13 sb4 01/30 15:50 Order name: PO challenge; Complete Time: 16:17 sb4 Administered Medications: 14:40 Drug: Famotidine IVP 20 mg IVP once; dilute with 10 mL 0.9% NaCl; give over 2 minutes tl4 Route: IVP; Infused Over: 2 mins; Site: right forearm; 15:45 Follow up: Response: No adverse reaction tl4 14:41 Drug: NS 0.9% IV 1000 ml IV at 1 bolus Per protocol; 1000 mL bolus Route: IV; Rate: 1 tl4 bolus; Site: right forearm; Delivery: Primary tubing; 17:05 Follow up: Response: No adverse reaction; IV Status: Completed infusion; IV Intake: tl4 1000ml 14:41 Drug: Ondansetron IVP 4 mg IVP once; over 2 minutes Route: IVP; Site: right forearm; tl4 15:45 Follow up: Response: No adverse reaction tl4 Disposition Summary: 01/31/24 16:38 Discharge Ordered Notes: Location: Home sb4 Problem: new sb4 Symptoms: have improved sb4 Condition: Stable sb4 Diagnosis - Nausea with vomiting, unspecified sb4 Followup: sb4 - With: Abebe Callahan MD - When: As needed - Reason: Recheck today's complaints, Re-evaluation by your physician Discharge Instructions: - Discharge Summary Sheet sb4 - Nausea and Vomiting, Adult sb4 Forms: - Thank You Letter sb4 - Patient Portal Instructions sb4 - Leadership Thank You Letter sb4 Prescriptions: - ondansetron 8 mg Oral Tablet,disintegrating - take 1 tablet ORAL route every 12 hours; 20 tablet; Refills: 0, Product sb4 Selection Permitted Addendum: 02/02/2024 07:11 I was immediately available for consultation during this patient's visit. I did not e c2 personally see the patient or discuss the patient with the JASSI. . Signatures: Dispatcher [employer] Mary Hatfield PA-C PA-C sb4 Saba Kitchen RN RN nj1 Meng Moraes MD MD ec2 Aneudy Roy RN RN tl4 Corrections: (The following items were deleted from the chart) 01/30 13:27 13:27 Abdomen Pelvis W Con+CT.RAD.BRZ ordered. [facility] 14:40 13:27 Patient reports nausea, vomiting, intermittent diarrhea, abdominal pain for a few sb4 weeks now. She was seen here 3 weeks ago, workup revealed an adrenal mass and uterine abnormality, both recommended outpatient ultrasounds. She has not had them done yet. States her symptoms have not improved, is a poor historian. sb4
[2024-01-31 20:22] VITALS: O2SAT 100
[2024-01-31 20:56] VITALS: BP 139/57; TEMP 98.1
== END 2024-01-31 17:05 | disposition home or self-care (01) ==
LOC: ER 13:21
DX: R11.2 Nausea with vomiting, unspecified (principal); R19.7 Diarrhea, unspecified; E11.9 Type 2 diabetes mellitus without complications; I10 Essential (primary) hypertension; F17.210 Nicotine dependence, cigarettes, uncomplicated
CPT/HCPCS: 96361; 85025; 36415; 83735; 84100; 81003; 83690; 80053; 74177; 96375; 96374; 99285; Q9967; J2405; J7030

== ENCOUNTER 2024-10-05 17:42 | Emergency (ER) | payer OTHER ==
[2024-10-05] MEDS ORDERED: KETOROLAC 30 MG/ML INJ ONE (17:59)
[2024-10-05] MEDS ORDERED: ACETAMINOPHEN 500 MG TAB ONE (17:59)
--- NOTE | 2024-10-05 19:29 | RAD REPORT ---
Exam:Knee Left 3 View HISTORY: Left knee pain FINDINGS: Mildly displaced fracture involves the mid aspect of the patella anteriorly extending to the posterio r surface. Lipohemarthrosis is present No dislocation seen.
--- NOTE | 2024-10-05 19:30 | RAD REPORT ---
Exam:Hand Right 3 View HISTORY: Right hand pain FINDINGS: No fracture or dislocation seen
--- NOTE | 2024-10-05 20:01 | EDPHYS ---
Physician Documentation [facility] Name: Kaylyn Moncada Age: 68 yrs Sex: Female : 1955 Arrival Date: 10/05/2024 Time: 17:42 Bed 12 Private MD: ED Physician Abi Danielson HPI: 10/05 18:09 This 68 yrs old Female presents to ER via Ambulatory with complaints of Fall dr5 Injury. 18:09 Details of fall: The patient fell from a height. Patient is a 68-year-old female with dr5 history of hypertension, hyperlipidemia, and diabetes coming in with mechanical fall about 1 and half hours ago. Patient reports swelling / pain to left knee and bruising / pain to right hand. Pt denies loss of consciousness. . Historical: - Allergies: 17:52 No Known Allergies; db - PMHx: 17:52 allergies; Diabetes - IDDM; Hypertension; db - Immunization history:: Adult Immunizations unknown. - Infectious Disease History:: Denies. - Social history:: Smoking status: Patient denies any tobacco usage or history of. ROS: 18:09 Constitutional: as per hpi dr5 Exam: 18:09 Constitutional: This is a well developed, well nourished patient who is awake, alert, dr5 and in no acute distress. Head/Face: Normocephalic, atraumatic. Eyes: Pupils equal round and reactive to light, extra-ocular motions intact. Lids and lashes normal. Conjunctiva and sclera are non-icteric and not injected. Cornea within normal limits. Periorbital areas with no swelling, redness, or edema. ENT: Nares patent. No nasal discharge, no septal abnormalities noted. Tympanic membranes are normal and external auditory canals are clear. Oropharynx with no redness, swelling, or masses, exudates, or evidence of obstruction, uvula midline. Mucous membranes moist. Chest/axilla: Normal chest wall appearance and motion. Nontender with no deformity. No lesions are appreciated. Cardiovascular: Regular rate and rhythm with a normal S1 and S2. Normal PMI, no JVD. No pulse deficits. Respiratory: Lungs have equal breath sounds bilaterally, clear to auscultation. No rales, rhonchi or wheezes noted. No increased work of breathing, no retractions or nasal flaring. Back: No spinal tenderness. No costovertebral tenderness. Full range of motion. Skin: Warm, dry with normal turgor. Normal color with no rashes, no lesions, and no evidence of cellulitis. Neuro: Awake and alert, GCS 15, oriented to person, place, time, and situation. Cranial nerves II-XII grossly intact. Motor strength 5/5 in all extremities. Sensory grossly intact. Cerebellar exam normal. Normal gait. 18:09 Musculoskeletal/extremity: Extremities: noted in the lateral aspect of left knee, posterior aspect of left knee, medial aspect of left knee and left knee: swelling, tenderness, contusion, noted in the right hand: tenderness, contusion, ROM: limited active range of motion, in the left leg and left knee, Circulation is intact in all extremities. Pulses: are normal with no appreciated deficits, Perfusion: the patient is normally perfused throughout, pink, warm, noted to have brisk capillary refill, Sensation intact. Vital Signs: 17:52 BP 162 / 64; Pulse 59; Resp 16; Temp 97.2; Pulse Ox 98% ; Weight 72.57 kg; Height 5 ft. db 3 in. ; 20:11 BP 142 / 83; Pulse 58; Resp 18; Pulse Ox 99% on R/A; nh2 17:52 Body Mass Index 28.34 (72.57 kg, 160.02 cm) db Procedures: 22:30 Splinting: Splint applied to left knee using knee immobilizer, applied by nurse. dr5 Examined by me, post splint application: neurovascular intact, 2+ distal pulses palpable, brisk capillary refill noted, Patient tolerated well. Crutch training provided to patient and/or family. Return demonstration given. MDM: 17:56 Medical Screening Exam initiated dr5 22:30 Differential diagnosis: abrasion, contusion, fracture, sprain, strain. Data reviewed: dr5 vital signs, nurses notes, radiologic studies, plain films. Historians other than the Patient: Daughter/Son: Daughter. Care significantly affected by the following chronic conditions: Diabetes, HTN. Care significantly affected by the following Social Determinants of Health: Poor access to healthcare and/or lack of insurance, Poor access to transportation, Problems related to employment. Counseling: I had a detailed discussion with the patient and/or guardian regarding the historical points, exam findings, and any diagnostic results supporting the discharge/admit diagnosis, the presence of at least one elevated blood pressure reading (>120/80) during this emergency department visit, radiology results, the need for outpatient follow up, for definitive care, a orthopedic surgeon, to return to the emergency department if symptoms worsen or persist or if there are any questions or concerns that arise at home. Medication response: Toradol markedly relieved the patient's pain. Response to treatment: the patient's symptoms have markedly improved after treatment. ED course: Explained to patient that she has patella fracture needs to follow-up with orthopedic next Wednesday. Recommended patient call tomorrow and make an appointment for next week. Non weight bearing. Crutch training completed and knee immobiler placed. Tramadol prescribed for pain control. All questions answered.. 10/05 17:56 Order name: Knee Left 3 View XRAY; Complete Time: 19:39 dr5 10/05 17:56 Order name: Hand Right 3 View XRAY; Complete Time: 19:39 dr5 10/05 19:40 Order name: Knee Immobilizer; Complete Time: 20:11 dr5 10/05 19:40 Order name: Crutches; Complete Time: 20:11 dr5 Administered Medications: 18:03 Drug: Acetaminophen PO 1000 mg PO once Route: PO; db 20:11 Follow up: Response: No adverse reaction lg3 18:03 Drug: Ketorolac IM 30 mg IM once Route: IM; Site: left deltoid; db 20:11 Follow up: Response: No adverse reaction lg3 Disposition Summary: 10/05/24 20:00 Discharge Ordered Notes: Location: Home dr5 Condition: Stable dr5 Diagnosis - Fracture of patella dr5 Followup: dr5 - With: Emergency Department - When: As needed - Reason: Worsening of condition Followup: dr5 - With: Private Physician - When: 1 - 2 days - Reason: Recheck today's complaints, Continuance of care, Re-evaluation by your physician Discharge Instructions: - Discharge Summary Sheet dr5 - Crutch Use, Adult dr5 - How to Use a Knee Immobilizer dr5 - Patellar Fracture, Adult dr5 Forms: - Medication Reconciliation Form dr5 - Prescription Opioid Use dr5 - Patient Portal Instructions dr5 - Leadership Thank You Letter dr5 Prescriptions: - Zofran 4 mg Oral Tablet - take 1 tablet ORAL route every 12 hours As needed; 20 tablet; Refills: 0, dr5 Product Selection Permitted - Tramadol 50 mg Oral Tablet - take 1 tablet ORAL route every 8 hours as needed; 12 tablet; Refills: 0, dr5 Product Selection Permitted Signatures: Dispatcher [employer] EDMS Carolina Mustafa, RN RN Amol Bill, HYPOID GEAR GENERATOR-C HYPOID GEAR GENERATOR-Cdr5 Kasie Godfrey RN lg3 Corrections: (The following items were deleted from the chart) 17:57 17:57 Hand Right 3 View+RAD.RAD.BRZ ordered. EDMS EDMS
--- NOTE | 2024-10-05 20:01 | ER ---
Nurse's Notes [facility] Name: Kaylyn Moncada Age: 68 yrs Sex: Female : 1955 Arrival Date: 10/05/2024 Time: 17:42 Bed 12 Private MD: Diagnosis: Fracture of patella Presentation: 10/05 17:52 Chief complaint: Patient states: FELL HIT LEFT KNEE 1 HOUR AGO. db 17:52 Coronavirus screen: Client denies travel out of the [place] in the last 14 days. At this db time, the client does not indicate any symptoms associated with coronavirus-19. Ebola Screen: Patient negative for fever greater than or equal to 101.5 degrees Fahrenheit, and additional compatible Ebola Virus Disease symptoms Patient denies exposure to infectious person. Patient denies travel to an Ebola-affected area in the 21 days before illness onset. No symptoms or risks identified at this time. Initial Sepsis Screen: Does the patient meet any 2 criteria? No. Patient's initial sepsis screen is negative. Does the patient have a suspected source of infection? No. Patient's initial sepsis screen is negative. Risk Assessment: Do you want to hurt yourself or someone else? Patient reports no desire to harm self or others. Onset of symptoms was October 05, 2024 at 16:30. 17:52 Method Of Arrival: Ambulatory db 17:52 Acuity: MARVIN 3 db Triage Assessment: 17:52 General: Appears in no apparent distress. comfortable, Behavior is calm, cooperative. db Pain: Complains of pain in left knee. Neuro: Level of Consciousness is awake, alert, obeys commands, Oriented to person, place, time, situation. Respiratory: Airway is patent Respiratory effort is even, unlabored, Respiratory pattern is regular, symmetrical. Musculoskeletal: Circulation, motion, and sensation intact. Capillary refill < 3 seconds, Range of motion: limited in left knee. Injury Description: Bruise sustained to left knee. Historical: - Allergies: 17:52 No Known Allergies; db - PMHx: 17:52 allergies; Diabetes - IDDM; Hypertension; db - Immunization history:: Adult Immunizations unknown. - Infectious Disease History:: Denies. - Social history:: Smoking status: Patient denies any tobacco usage or history of. Screenin:30 [facility] ED Fall Risk Assessment (Adult) History of falling in the last 3 months, db including since admission No falls in past 3 months (0 pts) Confusion or Disorientation No (0 pts) Intoxicated or Sedated No (0 pts) Impaired Gait No (0 pts) Mobility Assist Device Used No (0 pt) Altered Elimination No (0 pt) Score/Fall Risk Level 0 - 2 = Low Risk Oriented to surroundings, Maintained a safe environment. Abuse screen: Denies threats or abuse. Denies injuries from another. Nutritional screening: No deficits noted. Tuberculosis screening: No symptoms or risk factors identified. Assessment: 18:35 Reassessment: Patient appears in no apparent distress at this time. Patient and/or db family updated on plan of care and expected duration. Pain level reassessed. Patient is alert, oriented x 3, equal unlabored respirations, skin warm/dry/pink. General: Appears in no apparent distress. comfortable, Behavior is calm, cooperative. 20:10 Reassessment: Patient appears in no apparent distress at this time. No changes from lg3 previously documented assessment. Patient and/or family updated on plan of care and expected duration. Pain level reassessed. Patient is alert, oriented x 3, equal unlabored respirations, skin warm/dry/pink. Vital Signs: 17:52 BP 162 / 64; Pulse 59; Resp 16; Temp 97.2; Pulse Ox 98% ; Weight 72.57 kg; Height 5 ft. db 3 in. ; 20:11 BP 142 / 83; Pulse 58; Resp 18; Pulse Ox 99% on R/A; nh2 17:52 Body Mass Index 28.34 (72.57 kg, 160.02 cm) db ED Course: 17:48 Patient arrived in ED. im 17:49 Amol Liu, ALE-C is PHCP. dr5 17:49 Abi Danielson MD is Attending Physician. dr5 17:52 Arm band placed on Patient placed in an exam room. db 17:53 Triage completed. db 18:28 Knee Left 3 View XRAY In Process Unspecified. EDMS 18:28 Hand Right 3 View XRAY In Process Unspecified. EDMS 19:02 Patient has correct armband on for positive identification. lg3 20:10 No provider procedures requiring assistance completed. Patient did not have IV access lg3 during this emergency room visit. Crutch training done. Knee immobilizer applied on left knee. Administered Medications: 18:03 Drug: Acetaminophen PO 1000 mg PO once Route: PO; db 20:11 Follow up: Response: No adverse reaction lg3 18:03 Drug: Ketorolac IM 30 mg IM once Route: IM; Site: left deltoid; db 20:11 Follow up: Response: No adverse reaction lg3 Medication: 20:11 VIS not applicable for this client. lg3 Outcome: 20:00 Discharge ordered by . dr5 20:11 Discharged to home via wheelchair, with family, lg3 20:11 Condition: stable 20:11 Discharge instructions given to patient, Instructed on discharge instructions, follow up and referral plans. medication usage, crutch walking, Demonstrated understanding of instructions, follow-up care, medications, crutch walking, splint care, Prescriptions given X 2, 20:12 Patient left the ED. lg3 Signatures: Dispatcher [employer] EDMS Kasie Godfrey RN RN lg3 Carolina Mustafa RN RN db Jocelyn Delvalle Jr, Amol Mcclelland, STAGING TECHNICIAN-C STAGING TECHNICIAN-Cdr5 Corrections: (The following items were deleted from the chart) 17:53 17:52 Chief complaint: Patient states: FELL HIT LEFT KNEE 1 HOUR AGO db db
[2024-10-05 21:06] VITALS: TEMP 97.2
[2024-10-05 21:08] VITALS: BP 142/83; O2SAT 99
== END 2024-10-05 20:12 | disposition home or self-care (01) ==
LOC: ER 17:42
DX: S82.002A Unspecified fracture of left patella, initial encounter for closed fracture (principal); W17.89XA Other fall from one level to another, initial encounter; Y93.9 Activity, unspecified; Y92.9 Unspecified place or not applicable; I10 Essential (primary) hypertension; E11.9 Type 2 diabetes mellitus without complications
CPT/HCPCS: 96372; 99284

== ENCOUNTER 2025-07-22 12:07 | Emergency (ER) | payer OTHER ==
--- OUTSIDE RECORDS SUMMARY | 2025-07-22 12:09 | XMS REPORT | Continuity of Care Document ---
Author Name Unknown Address [address] [place] [address] [address] [place] [address] [facility] Address [address] [facility]. [address] [place] [address] Care Team Providers Care Flatwork Folder Name Role Phone VINCENT PEDROZA Primary Care Physician Unavailab KELBY Richardson Attending Clinician Unavailable Payers Payer Name Policy Type Policy Number Effective Date Expirati on Date Source [employer] MEDICARE ADVANTAGE HMO/POS [id number] 2025 00:00:00 Allergies, Adverse Reactions, Alerts Allergy Name Allergy Type Status Severity Reaction(s) Onset Date Inactive Date Treating Clinician Comments Source NO KNOWN ALLERGIE S Drug Class Active [facility] Encounters Start Date/Time End Date/Time Encounter Type Admission Type Attending Clinicians Care Facility Care Department Encounter ID Source 2025-07-06 09:00:00 2025-07-06 09:00:00 Outpatient EKLBY CUNHA [facility] [id number] [facility]
[2025-07-22] MEDS ORDERED: HYDROCODONE/APAP 5/325 MG TAB ONE (12:27)
--- NOTE | 2025-07-22 13:11 | RAD REPORT ---
EXAMINATION: Wrist Left 3 View VIEWS: As above CLINICAL INDICATION: Female, 69 years old. PAIN COMPARISON: No prior exams IMPRESSION: Distal radial impaction fracture without significant displacement or malalignment. Fracture likely ex tends to the articular surface. Nondisplaced ulnar styloid fracture.
--- NOTE | 2025-07-22 13:19 | EDPHYS ---
Physician Documentation [facility] Name: Kaylyn Moncada Age: 69 yrs Sex: Female : 1955 Arrival Date: 07/22/2025 Time: 12:07 Bed 11 Private MD: ED Physician Tucker Rivera HPI: 07/22 12:33 This 69 yrs old Female presents to ER via Ambulatory with complaints of Fall sb4 Injury - WRIST. 12:33 Patient states that she sustained a mechanical fall yesterday, injuring her left wrist. sb4 Reports swelling and pain with range of motion. Denies any other injuries. Historical: - Allergies: 12:22 No Known Allergies; iw - PMHx: 12:22 Hypertension; Diabetes - IDDM; allergies; iw - PSHx: 12:22 None; iw - Immunization history:: Adult Immunizations. - Infectious Disease History:: Denies. - Social history:: Smoking status: Patient reports the use of cigarette tobacco products, denies chronic smoking, but will smoke occasionally. ROS: 12:33 Constitutional: Negative for fever, chills, and weight loss, sb4 12:33 MS/extremity: Positive for injury or acute deformity, pain, tenderness, of the left wrist, 12:33 All other systems are negative, Exam: 12:33 Constitutional: This is a well developed, well nourished patient who is awake, alert, sb4 and in no acute distress. Head/Face: Normocephalic, atraumatic. Eyes: Extra-ocular motions intact. Periorbital areas with no swelling, redness, or edema. ENT: Mucous membranes moist. Respiratory: No increased work of breathing, no retractions or nasal flaring. Skin: Warm, dry with normal turgor. Normal color with no rashes, no lesions, and no evidence of cellulitis. 12:33 Musculoskeletal/extremity: Circulation is intact in all extremities. Pulses: are normal with no appreciated deficits, Perfusion: the extremity is normally perfused throughout, Sensation intact. Joints: the left wrist displays painful range of motion, swelling, tenderness, Vital Signs: 12:20 BP 131 / 72; Pulse 59; Resp 16; Pulse Ox 98% on R/A; Weight 53.52 kg; Height 5 ft. 2 iw in. ; Pain 10/10; 12:20 Body Mass Index 21.58 (53.52 kg, 157.48 cm) iw 12:20 Pain Scale: Adult iw MDM: 12:20 Medical Screening Exam initiated sb4 12:44 Differential diagnosis: contusion, fracture, sprain, strain. sb4 13:16 Data reviewed: vital signs, nurses notes, radiologic studies, and as a result, I will sb4 discharge patient. Historians other than the Patient: Daughter/Son: daughter. Counseling: I had a detailed discussion with the patient and/or guardian regarding the historical points, exam findings, and any diagnostic results supporting the discharge/admit diagnosis, radiology results, the need for outpatient follow up, a orthopedic surgeon, to return to the emergency department if symptoms worsen or persist or if there are any questions or concerns that arise at home. Special discussion: Based on the history and exam findings, there is no indication for further emergent testing or inpatient evaluation. I discussed with the patient/guardian the need to see the orthopedic surgeon for further evaluation of the symptoms. 13:20 Independent interpretation of the following test(s) in the Emergency Department X-Ray: sb4 My interpretation is left wrist xray images - left distal radius fracture, nondisplaced. Care significantly affected by the following chronic conditions: Diabetes, Hypertension. 07/22 12:22 Order name: Wrist Left (3 View) XRAY; Complete Time: 13:12 sb4 07/22 12:25 Order name: Ice pack; Complete Time: 12:38 sb4 07/22 13:16 Order name: Sugar Tong Forearm Splint; Complete Time: 13:45 sb4 Administered Medications: 12:38 Drug: HYDROcodone-acetaminophen PO 5 mg-325 mg 1 tabs PO once Route: PO; iw 12:40 Follow up: Response: No adverse reaction iw Disposition Summary: 07/22/25 13:19 Discharge Ordered Notes: Location: Home sb4 Problem: new sb4 Symptoms: have improved sb4 Condition: Stable sb4 Diagnosis - Acute impacted nondisplaced left distal radius fracture sb4 - Acute nondisplaced left ulnar styloid fracture sb4 Followup: sb4 - With: Earl Ventura MD - When: 1 week - Reason: Recheck today's complaints, Re-evaluation by your physician Followup: sb4 - With: Brian Olmedo MD - When: 1 week - Reason: Recheck today's complaints, Re-evaluation by your physician Followup: sb4 - With: Pablito Mayfield MD - When: 1 week - Reason: Recheck today's complaints, Re-evaluation by your physician Discharge Instructions: - Discharge Summary Sheet sb4 - Wrist Fracture Treated With Immobilization, [id number] sb4 Forms: - Antibiotic Education sb4 - Patient Portal Instructions sb4 - Leadership Thank You Letter sb4 Prescriptions: - Tramadol 50 mg Oral Tablet - take 1 tablet ORAL route every 8 hours as needed; 12 tablet; Refills: 0, sb4 Product Selection Permitted Addendum: 08/01/2025 08:05 Co-signature as Attending Physician, Tucker Rivera MD I agree with the assessment and c hudson plan of care. Signatures: Dispatcher [employer] EDTucker Martinez MD MD cha Williams, Irene, RN RN Mary Valdivia, PAOmarC PABarbara sb4
--- NOTE | 2025-07-22 13:19 | ER ---
Nurse's Notes [facility] Name: Kaylyn Moncada Age: 69 yrs Sex: Female : 1955 Arrival Date: 07/22/2025 Time: 12:07 Bed 11 Private MD: Diagnosis: Acute impacted nondisplaced left distal radius fracture;Acute nondisplaced left ulnar styloid fracture Presentation: 07/22 12:20 Chief complaint: Patient states: fell down last night from standing position, has iw pain/swelling to left wrist. Coronavirus screen: At this time, the client does not indicate any symptoms associated with coronavirus-19. Ebola Screen: No symptoms or risks identified at this time. Initial Sepsis Screen: Does the patient meet any 2 criteria? No. Patient's initial sepsis screen is negative. Does the patient have a suspected source of infection? No. Patient's initial sepsis screen is negative. Risk Assessment: Do you want to hurt yourself or someone else? Patient reports no desire to harm self or others. Onset of symptoms was July 21, 2025. 12:20 Method Of Arrival: Ambulatory iw 12:20 Acuity: MARVIN 4 iw Historical: - Allergies: 12:22 No Known Allergies; iw - PMHx: 12:22 Hypertension; Diabetes - IDDM; allergies; iw - PSHx: 12:22 None; iw - Immunization history:: Adult Immunizations. - Infectious Disease History:: Denies. - Social history:: Smoking status: Patient reports the use of cigarette tobacco products, denies chronic smoking, but will smoke occasionally. Vital Signs: 12:20 BP 131 / 72; Pulse 59; Resp 16; Pulse Ox 98% on R/A; Weight 53.52 kg; Height 5 ft. 2 iw in. ; Pain 10/10; 12:20 Body Mass Index 21.58 (53.52 kg, 157.48 cm) iw 12:20 Pain Scale: Adult iw ED Course: 12:11 Patient arrived in ED. cj3 12:20 Mary Mena PA-C is PHCP. sb4 12:20 Tucker Rivera MD is Attending Physician. sb4 12:22 Triage completed. iw 12:22 Arm band placed on. iw 12:33 Gabriella Goodwin, REYNA is Primary Nurse. iw 12:53 Wrist Left (3 View) XRAY In Process Unspecified. EDMS 13:17 Earl Ventura MD is Referral Physician. sb4 13:17 Brian Olmedo MD is Referral Physician. sb4 13:17 Pablito Mayfield MD is Referral Physician. sb4 13:46 Orthoglass splint: Sugar tong splint applied on left arm. Sling applied to left arm. em1 Administered Medications: 12:38 Drug: HYDROcodone-acetaminophen PO 5 mg-325 mg 1 tabs PO once Route: PO; iw 12:40 Follow up: Response: No adverse reaction iw Outcome: 13:19 Discharge ordered by . sb4 13:58 Patient left the ED. iw Signatures: Dispatcher [employer] EDMS Gabriella Goodwin RN RN iw David Pina em1 Mary Mena PA-C PA-C sb4 Snehal Rodriguez cj3
[2025-07-22 14:21] VITALS: BP 131/72; O2SAT 98
== END 2025-07-22 13:58 | disposition home or self-care (01) ==
LOC: ER 12:07
PROC: 2W3DX1Z Immobilization of Left Lower Arm using Splint (ICD-10-PCS; principal; 2025-07-22)
DX: S52.502A Unspecified fracture of the lower end of left radius, initial encounter for closed fracture (principal); S52.615A Nondisplaced fracture of left ulna styloid process, initial encounter for closed fracture; W18.30XA Fall on same level, unspecified, initial encounter; Z72.0 Tobacco use
CPT/HCPCS: 99283

== ENCOUNTER 2025-08-02 15:34 | Emergency (ER) | payer OTHER ==
--- OUTSIDE RECORDS SUMMARY | 2025-08-02 15:41 | XMS REPORT | Continuity of Care Document ---
Author Name Unknown Address [address] [facility] [address] [place] [address] [facility] [place] Address [address] [facility]. [address] [place] [address] Care Team Providers Care Audio Video Mechanic Name Role Phone VINCENT PEDROZA Primary Care Physician Unavailab KELBY Richardson Attending Clinician Unavailable Payers Payer Name Policy Type Policy Number Effective Date Expirati on Date Source [employer] MEDICARE ADVANTAGE HMO/POS [id number] 2025 00:00:00 Allergies, Adverse Reactions, Alerts Allergy Name Allergy Type Status Severity Reaction(s) Onset Date Inactive Date Treating Clinician Comments Source NO KNOWN ALLERGIE S Drug Class Active [facility] Encounters Start Date/Time End Date/Time Encounter Type Admission Type Attending Clinicians Care Facility Care Department Encounter ID Source 2025-07-06 09:00:00 2025-07-06 09:00:00 Outpatient KELBY CUNHA [facility] [id number] [facility]
--- NOTE | 2025-08-02 16:32 | ER ---
Nurse's Notes [facility] Name: Kaylyn Moncada Age: 69 yrs Sex: Female : 1955 Arrival Date: 08/02/2025 Time: 15:34 Bed 11 Private MD: Diagnosis: Colles' fracture of left radius-Pain, splint adjustment Presentation: 08/02 16:07 Chief complaint: Patient states: pt reports swelling in L hand w/ pain ( Cast on L arm kb4 applied by us 2wks ago). Coronavirus screen: At this time, unable to obtain information related to travel outside the [place] Ebola Screen: No symptoms or risks identified at this time. Initial Sepsis Screen: Does the patient meet any 2 criteria? No. Patient's initial sepsis screen is negative. Does the patient have a suspected source of infection? No. Patient's initial sepsis screen is negative. Risk Assessment: Do you want to hurt yourself or someone else? Patient reports no desire to harm self or others. Onset of symptoms was August 01, 2025. 16:07 Method Of Arrival: Ambulatory kb4 16:07 Acuity: MARVIN 3 kb4 Triage Assessment: 16:10 General: Appears distressed, uncomfortable, Behavior is calm, cooperative. Pain: kb4 Complains of pain in left arm Pain currently is 5 out of 10 on a pain scale. Musculoskeletal: Capillary refill < 3 seconds, in left fingers. Range of motion: limited in left elbow and left wrist and hand Swelling present in left hand. Historical: - Allergies: 16:10 No Known Allergies; kb4 - PMHx: 16:10 allergies; Diabetes - IDDM; Hypertension; kb4 - Immunization history:: Adult Immunizations up to date. - Infectious Disease History:: Denies. - Social history:: Smoking status: Patient denies any tobacco usage or history of. Smoking status: Patient reports the use of cigarette tobacco products, denies chronic smoking, but will smoke occasionally. Screenin:35 [facility] ED Fall Risk Assessment (Adult) History of falling in the last 3 months, me1 including since admission No falls in past 3 months (0 pts) Confusion or Disorientation No (0 pts) Intoxicated or Sedated No (0 pts) Impaired Gait No (0 pts) Mobility Assist Device Used No (0 pt) Altered Elimination No (0 pt) Score/Fall Risk Level 0 - 2 = Low Risk Maintained a safe environment, Provided non-skid footwear, Hourly rounding (assess needs \T\ fall precautionary measures) done. Abuse screen: Denies threats or abuse. Nutritional screening: No deficits noted. Tuberculosis screening: No symptoms or risk factors identified. Assessment: 16:35 General: Appears uncomfortable, well groomed, well developed, well nourished, Behavior me1 is calm, cooperative, appropriate for age, Reports pt reports swelling in L hand w/ pain ( Cast on L arm applied by us 2wks ago). Pain: Complains of pain in left forearm and palmar aspect of left forearm and left wrist and left hand and left arm Pain does not radiate. Pain currently is 5 out of 10 on a pain scale. Quality of pain is described as aching, Pain began gradually, Is continuous. Neuro: Level of Consciousness is awake, alert, obeys commands, Oriented to person, place, time, situation, Appropriate for age. Cardiovascular: Patient's skin is warm and dry. Respiratory: Airway is patent Respiratory effort is even, unlabored, Respiratory pattern is regular, symmetrical. GI: No signs and/or symptoms were reported involving the gastrointestinal system. : No signs and/or symptoms were reported regarding the genitourinary system. EENT: No signs and/or symptoms were reported regarding the EENT system. Derm: Skin is intact, is healthy with good turgor, Skin is normal. Musculoskeletal: Swelling present in left forearm and palmar aspect of left forearm and left wrist and left hand and left arm. 16:43 Reassessment: Patient and/or family updated on plan of care and expected duration. Pain ll1 level reassessed. 16:51 Reassessment: No changes from previously documented assessment. Patient and/or family ll1 updated on plan of care and expected duration. Pain level reassessed. Patient is alert, oriented x 3, equal unlabored respirations, skin warm/dry/pink. 17:29 Reassessment: No changes from previously documented assessment. Patient and/or family ll1 updated on plan of care and expected duration. Pain level reassessed. Patient is alert, oriented x 3, equal unlabored respirations, skin warm/dry/pink. 17:30 Musculoskeletal: Circulation, motion, and sensation intact. Capillary refill < 3 ll1 seconds, in left fingers. Vital Signs: 16:07 BP 126 / 62; Pulse 55; Resp 18; Temp 96.5; Pulse Ox 99% ; Weight 53.07 kg; Height 5 ft. kb4 1 in. ; Pain 5/10; 17:41 BP 118 / 64; Pulse 59; Resp 17; Temp 98.2; Pulse Ox 100% ; me1 16:07 Body Mass Index 22.11 (53.07 kg, 154.94 cm) kb4 16:07 Pain Scale: Adult kb4 ED Course: 15:36 Patient arrived in ED. im 16:10 Triage completed. kb4 16:13 Tucker Rivera MD is Attending Physician. [facility] 16:30 Brian Olmedo MD is Referral Physician. [facility] 16:35 Patient has correct armband on for positive identification. Bed in low position. Call me1 light in reach. Side rails up X2. Provided Education on: POC. Verbalized understanding.. Client placed on continuous cardiac and pulse oximetry monitoring. NIBP monitoring applied. Pulse ox on. NIBP on. 16:35 No provider procedures requiring assistance completed. Patient did not have IV access me1 during this emergency room visit. 16:43 Arm band placed on Patient placed in an exam room, on a stretcher. ll1 17:18 Jenn Peguero, REYNA is Primary Nurse. me1 17:25 Forearm Left XRAY In Process Unspecified. EDMS 17:30 Orthoglass splint: Sugar tong splint applied on left arm. ll1 Administered Medications: 16:47 Drug: [place] PO 5 mg-325 mg 1 tabs PO once Route: PO; ll1 17:42 Follow up: Response: No adverse reaction; Pain is decreased me1 16:47 Drug: Ibuprofen PO 400 mg PO once Route: PO; ll1 17:42 Follow up: Response: No adverse reaction; Pain is decreased me1 Medication: 16:35 VIS not applicable for this client. me1 Outcome: 16:32 Discharge ordered by . [facility] 17:48 Discharged to home ambulatory, with family, me1 17:48 Condition: stable 17:48 Discharge instructions given to patient, family, Instructed on discharge instructions, follow up and referral plans. medication usage, Demonstrated understanding of instructions, follow-up care, medications, Prescriptions given X 3, 17:48 Patient left the ED. me1 Signatures: Dispatcher [employer] Tucker Carlson MD MD cha Lewis, Lynsay, RN RN ll1 Jocelyn Delvalle Michelle, RN RN me1 Lauren Emery RN RN kb4 Corrections: (The following items were deleted from the chart) 17:19 16:07 Chief complaint: Patient states: pt reports swelling in L hand w/ pain ( Cast on me1 L arm applied by us 2wks ago) kb4
--- NOTE | 2025-08-02 16:33 | EDPHYS ---
Physician Documentation [facility] Name: Kaylyn Moncada Age: 69 yrs Sex: Female : 1955 Arrival Date: 08/02/2025 Time: 15:34 Bed 11 Private MD: IVON Physician Tucker Rivera HPI: 08/02 16:25 This 69 yrs old Female presents to ER via Ambulatory with complaints of Arm usman Pain - left. 16:25 This 69 yrs old Female presents to ER via Ambulatory with complaints of Arm usman Pain - left. 16:25 The patient or guardian complains of decreased range of motion, pain, that is acute. usman The complaints affect the left wrist. Context: The problem was sustained at home, resulted from a fall. Onset: The symptoms/episode began/occurred 2 week(s) ago. Treatment prior to arrival includes: blake wrap, sling, splinting the affected extremity. Modifying factors: The symptoms are alleviated by nothing. the symptoms are aggravated by movement. Associated signs and symptoms: The patient has no apparent associated signs or symptoms. Severity of symptoms: At their worst the symptoms were mild, in the emergency department the symptoms are unchanged. The patient has not experienced similar symptoms in the past. Historical: - Allergies: 16:10 No Known Allergies; kb4 - PMHx: 16:10 allergies; Diabetes - IDDM; Hypertension; kb4 - Immunization history:: Adult Immunizations up to date. - Infectious Disease History:: Denies. - Social history:: Smoking status: Patient denies any tobacco usage or history of. Smoking status: Patient reports the use of cigarette tobacco products, denies chronic smoking, but will smoke occasionally. ROS: 16:27 Constitutional: Negative for fever, chills, and weight loss, Eyes: Negative for injury, usman pain, redness, and discharge, ENT: Negative for injury, pain, and discharge, Neck: Negative for injury, pain, and swelling, Cardiovascular: Negative for chest pain, palpitations, and edema, Respiratory: Negative for shortness of breath, cough, wheezing, and pleuritic chest pain, Abdomen/GI: Negative for abdominal pain, nausea, vomiting, diarrhea, and constipation, Back: Negative for injury and pain, : Negative for injury, bleeding, discharge, and swelling, Skin: Negative for injury, rash, and discoloration, Neuro: Negative for headache, weakness, numbness, tingling, and seizure, Psych: Negative for depression, anxiety, suicide ideation, homicidal ideation, and hallucinations, Allergy/Immunology: Negative for hives, rash, and allergies, Endocrine: Negative for neck swelling, polydipsia, polyuria, polyphagia, and marked weight changes, Hematologic/Lymphatic: Negative for swollen nodes, abnormal bleeding, and unusual bruising, 16:27 MS/extremity: Positive for injury or acute deformity, decreased range of motion, pain, swelling, tenderness, of the left wrist, Exam: 16:27 Constitutional: This is a well developed, well nourished patient who is awake, alert, usman and in no acute distress. Head/Face: Normocephalic, atraumatic. Eyes: Pupils equal round and reactive to light, extra-ocular motions intact. Lids and lashes normal. Conjunctiva and sclera are non-icteric and not injected. Cornea within normal limits. Periorbital areas with no swelling, redness, or edema. ENT: Nares patent. No nasal discharge, no septal abnormalities noted. Tympanic membranes are normal and external auditory canals are clear. Oropharynx with no redness, swelling, or masses, exudates, or evidence of obstruction, uvula midline. Mucous membranes moist. Neck: Trachea midline, no thyromegaly or masses palpated, and no cervical lymphadenopathy. Supple, full range of motion without nuchal rigidity, or vertebral point tenderness. No Meningismus. Chest/axilla: Normal chest wall appearance and motion. Nontender with no deformity. No lesions are appreciated. Cardiovascular: Regular rate and rhythm with a normal S1 and S2. No gallops, murmurs, or rubs. Normal PMI, no JVD. No pulse deficits. Respiratory: Lungs have equal breath sounds bilaterally, clear to auscultation and percussion. No rales, rhonchi or wheezes noted. No increased work of breathing, no retractions or nasal flaring. Abdomen/GI: Soft, non-tender, with normal bowel sounds. No distension or tympany. No guarding or rebound. No evidence of tenderness throughout. Back: No spinal tenderness. No costovertebral tenderness. Full range of motion. Female : Normal external genitalia. Skin: Warm, dry with normal turgor. Normal color with no rashes, no lesions, and no evidence of cellulitis. Neuro: Awake and alert, GCS 15, oriented to person, place, time, and situation. Cranial nerves II-XII grossly intact. Motor strength 5/5 in all extremities. Sensory grossly intact. Cerebellar exam normal. Normal gait. Psych: Awake, alert, with orientation to person, place and time. Behavior, mood, and affect are within normal limits. 16:27 Musculoskeletal/extremity: Extremities: contusion, decreased ROM, ROM: limited active range of motion, limited passive range of motion, limited active range of motion due to pain, limited passive range of motion due to pain, in the left wrist, Circulation is intact in all extremities. Sensation intact. Compartment Syndrome exam of affected extremity: is normal. DVT Exam: pain, swelling, tenderness, that is mild, of the left wrist, palmar aspect of left forearm and left forearm, Vital Signs: 16:07 BP 126 / 62; Pulse 55; Resp 18; Temp 96.5; Pulse Ox 99% ; Weight 53.07 kg; Height 5 ft. kb4 1 in. ; Pain 5/10; 17:41 BP 118 / 64; Pulse 59; Resp 17; Temp 98.2; Pulse Ox 100% ; me1 16:07 Body Mass Index 22.11 (53.07 kg, 154.94 cm) kb4 16:07 Pain Scale: Adult kb4 MDM: 16:13 Medical Screening Exam initiated usman 16:29 Differential diagnosis: closed fracture, contusion, tendonitis. Data reviewed: vital usman signs, nurses notes, radiologic studies, plain films. Consideration of Admission/Observation Escalation of care including admission/observation considered. I considered the following discharge prescriptions or medication management in the emergency department Medications were administered in the Emergency Department. See MAR. Independent interpretation of the following test(s) in the Emergency Department X-Ray: My interpretation is left wrist, forearm. Test considered but Not performed: X-ray: left forearm. Historians other than the Patient: Family Member: multiple family members. Care significantly affected by the following chronic conditions: Diabetes, Hypertension. 08/02 16:24 Order name: Forearm Left XRAY [facility] 08/02 16:24 Order name: Ice pack; Complete Time: 16:51 [facility] 08/02 16:24 Order name: Sling; Complete Time: 17:42 [facility] 08/02 16:27 Order name: Splint - Sugar Tong - Forearm; Complete Time: 17:29 usman Administered Medications: 16:47 Drug: [place] PO 5 mg-325 mg 1 tabs PO once Route: PO; ll1 17:42 Follow up: Response: No adverse reaction; Pain is decreased me1 16:47 Drug: Ibuprofen PO 400 mg PO once Route: PO; ll1 17:42 Follow up: Response: No adverse reaction; Pain is decreased me1 Disposition Summary: 08/02/25 16:32 Discharge Ordered Notes: Location: Home [facility] Problem: new usman Symptoms: have improved usman Condition: Stable usman Diagnosis - Colles' fracture of left radius - Pain, splint adjustment usman Followup: usman - With: Private Physician - When: 2 - 3 days - Reason: Recheck today's complaints, Continuance of care, Re-evaluation by your physician Followup: usman - With: Brian Olmedo MD - When: 2 - 3 days - Reason: Recheck today's complaints, Re-evaluation by your physician Discharge Instructions: - Discharge Summary Sheet [facility] - Wrist Fracture Treated With Immobilization usman - Wrist Splint or Brace, Adult usman - Wrist Splint or Brace, Adult, [id number] usman - Wrist Fracture Treated With Immobilization, [id number] [facility] Forms: - Medication Reconciliation Form [facility] - Antibiotic Education [facility] - Prescription Opioid Use [facility] - Patient Portal Instructions [facility] - Leadership Thank You Letter [facility] Prescriptions: - ondansetron 4 mg Oral Tablet,disintegrating - take 1 tablet ORAL route every 6 hours as needed for nausea and vomiting; 20 usman tablet; Refills: 0, Product Selection Permitted - Motrin IB 200 mg Oral tablet - take 2 tablet ORAL route every 6 hours As needed as needed with food; 26 usman tablet; Refills: 0, Product Selection Permitted - Tylenol-Codeine #3 300mg-30mg Oral tablet - take 1 tablet ORAL route every 4 hours As needed; 16 tablet; Refills: 0, [facility] Product Selection Permitted Signatures: Dispatcher [employer] EDMS Tucker Rivera MD MD cha Lewis, Lynsay RN RN ll1 Lauren Emery RN RN kb4 Jenn Peguero RN me1 Corrections: (The following items were deleted from the chart) 17:25 16:24 Wrist Left 3 View+[email or web address] ordered. EDMS EDMS
[2025-08-02] MEDS ORDERED: IBUPROFEN 400 MG TAB ONE ×2 (16:40→16:44)
[2025-08-02] MEDS ORDERED: HYDROCODONE/APAP 5/325 MG TAB ONE (16:44)
--- NOTE | 2025-08-02 17:27 | RAD REPORT ---
EXAMINATION: XR LEFT FOREARM CLINICAL INDICATION: PAIN TECHNIQUE: Multiple projections of the left forearm were obtained. COMPARISON: No prior exam. FINDINGS: Mildly impacted distal radius fracture is seen. Mild soft tissue swelling. No dislocation is evident.
[2025-08-02 19:22] VITALS: BP 118/64; TEMP 98.2; O2SAT 100
== END 2025-08-02 17:48 | disposition home or self-care (01) ==
LOC: ER 15:34
PROC: 2W3DX1Z Immobilization of Left Lower Arm using Splint (ICD-10-PCS; principal; 2025-08-02)
DX: S52.532A Colles' fracture of left radius, initial encounter for closed fracture (principal)
CPT/HCPCS: 99284